=== PATIENT | female | born 1965 | race Two or more races ===

== ENCOUNTER 2017-10-15 07:55 | Inpatient (IN) | payer OTHER ==
[~2017-10-15] VITALS: Ht 167.6 cm; Wt 95.3 kg
[2017-10-15] MEDS ORDERED: SODIUM CHLORIDE 0.9% 1,000 ML IV ONE (08:05)
[2017-10-15] MEDS ORDERED: MORPHINE SULFATE 4 MG/ML SYR/VIAL IV ONE (08:15)
[2017-10-15] MEDS ORDERED: ONDANSETRON HCL 4 MG/2 ML VIAL IV ONE (08:15)
[2017-10-15 08:34] LABS: Basophils # (auto) 0 uL; Basophils % (auto) 0.7 % (0.0-2.0); Eosinophils # (auto) 0.1 uL; Eosinophils % (auto) 1.2 % (0.0-7.0); Hematocrit 42.8 % (36.0-46.0); Hemoglobin 14.3 g/dL (12.2-16.2); Lymphocytes # (auto) 1.8 uL; Lymphocytes % (auto) 29.8 % (10.0-50.0); Mean Corpuscular Hemoglobin 27.5 pg (28.0-32.0); Mean Corpuscular Hgb Conc. 33.4 g/dL (32.0-36.0); Mean Corpuscular Volume 82.3 fL (80.0-100.0); Monocytes # (auto) 0.3 uL; Monocytes % (auto) 5.2 % (0.0-12.0); Neutrophils # (auto) 3.8 uL; Neutrophils % (auto) 63.1 % (37.0-80.0); Nucleated Red Blood Cells % 0.2 %; Platelet Count (auto) 215 10^3/uL (140-450); Red Cell Distribution Width 13.6 % (11.8-14.3); White Blood Cell 5.9 10^3/uL (4.4-10.8)
[2017-10-15 08:52] LABS: Alanine Aminotransferase 46 U/L (13-56); Albumin 3.6 g/dL (3.4-5.0); Alkaline Phosphatase 66 U/L (45-117); Anion Gap 9 (5-15); Aspartate Aminotransferase 30 U/L (15-37); BUN/Creatinine Ratio 14.3; Bilirubin, Total 0.6 mg/dL (0.2-1.0); Blood Urea Nitrogen 13 mg/dL (7-18); Calcium 9.6 mg/dL (8.5-10.1); Carbon Dioxide 25 mmol/L (21-32); Chloride 108 mmol/L (98-107); GFR African American 83 mL/min; GFR Non-African American 69 mL/min; Glucose 94 mg/dL (74-106); INR 0.95 (0.9-1.15); Magnesium 2.7 mg/dL (1.6-2.6); Potassium 4.6 mmol/L (3.5-5.1); Sodium 142 mmol/L (136-145); Total Protein 7.6 g/dL (6.4-8.2)
[2017-10-15] MEDS ORDERED: SODIUM CHLORIDE 0.9% 1,000 ML IV SCH (10:32)
[2017-10-15] MEDS ORDERED: LORazepam 0.5 MG TAB PO PRN (10:45)
[2017-10-15] MEDS ORDERED: LACTULOSE 20Gm/30ML SOLN PO PRN (10:45)
[2017-10-15] MEDS ORDERED: TEMAZEPAM 15 MG CAP PO PRN (10:45)
[2017-10-15] MEDS ORDERED: MORPHINE SULFATE 4 MG/ML SYR/VIAL IV PRN (10:45)
[2017-10-15] MEDS ORDERED: NITROGLYCERIN 0.4 MG SL TAB SL PRN (10:45)
[2017-10-15] MEDS ORDERED: ACETAMINOPHEN 500 MG TAB PO PRN (10:45)
[2017-10-15] MEDS ORDERED: PROMETHAZINE HCL 25 MG/ML 1ML IV PRN (10:45)
[2017-10-15] MEDS ORDERED: METOPROLOL TARTRATE 25 MG TAB PO ONE (11:00)
[2017-10-15] MEDS: HYDROcodone-ACET 5/325MG TAB PO PRN ×2 (11:14→17:56)
[2017-10-15] MEDS ORDERED: HYDR25TA4 PO (11:16)
[2017-10-15] MEDS ORDERED: LISI40TA PO (11:19)
[2017-10-15] MEDS ORDERED: OMEP20CA74 PO (11:19)
[2017-10-15] MEDS ORDERED: TOPI100T68 PO (11:19)
[2017-10-15] MEDS: NITROGLYCERIN 0.2MG/HR TOPICAL PATCH TD ONE ×2 (11:32→11:38)
[2017-10-15] MEDS ORDERED: METOPROLOL SUCCINATE XL 50 MG TAB PO ONE (11:45)
[2017-10-15] MEDS: SODIUM CHLORIDE 0.9% 1,000 ML IV SCH ×2 (15:13→21:27)
[2017-10-15] MEDS ORDERED: METOPROLOL TARTRATE 25 MG TAB PO SCH (22:00)
[2017-10-15] MEDS ORDERED: ATORVASTATIN 20 MG TAB PO SCH (22:00)
[2017-10-16] MEDS: HYDROcodone-ACET 5/325MG TAB PO PRN ×3 (04:23→22:00)
[2017-10-16 05:00] VITALS: BP 124/76
[2017-10-16 07:00] LABS: Cholesterol 206 mg/dL (< 200); HDL Cholesterol 56 mg/dL (40-59); LDL Cholesterol 130 mg/dL (< 100); Triglycerides 151 mg/dL (< 150)
[2017-10-16 09:00] VITALS: BP 127/75
[2017-10-16] MEDS ORDERED: NITROGLYCERIN 0.2MG/HR TOPICAL PATCH TD SCH (10:00)
[2017-10-16] MEDS: ASPirin 81 mg TAB PO SCH (10:30)
[2017-10-16] MEDS: METOPROLOL SUCCINATE XL 50 MG TAB PO SCH (10:31)
[2017-10-16] MEDS: MORPHINE SULFATE 4 MG/ML SYR/VIAL IV PRN (10:32)
[2017-10-16] MEDS: ATORVASTATIN 20 MG TAB PO ONE ×2 (11:15→14:11)
[2017-10-16 13:00] VITALS: BP 144/76
[2017-10-16 17:00] VITALS: BP 111/70
[2017-10-16] MEDS: SODIUM CHLORIDE 0.9% 1,000 ML IV SCH (17:40)
[2017-10-16 19:47] VITALS: BP 124/64
[2017-10-16 22:00] VITALS: BP 123/69
[2017-10-16] MEDS ORDERED: ATORVASTATIN 20 MG TAB PO SCH (22:00)
[2017-10-17 05:00] VITALS: BP 104/65
[2017-10-17] MEDS: HYDROcodone-ACET 5/325MG TAB PO PRN (06:02)
[2017-10-17] MEDS: SODIUM CHLORIDE 0.9% 1,000 ML IV SCH (06:56)
[2017-10-17 09:00] VITALS: BP 129/73
[2017-10-17] MEDS: ASPirin 81 mg TAB PO SCH (10:02)
[2017-10-17] MEDS: MORPHINE SULFATE 4 MG/ML SYR/VIAL IV PRN (10:03)
[2017-10-17] MEDS: METOPROLOL SUCCINATE XL 50 MG TAB PO SCH (10:03)
[2017-10-17 11:30] VITALS: BP 126/76
[2017-10-17 13:00] VITALS: BP 118/83
== END 2017-10-17 12:17 | disposition home or self-care (01) | DRG 313 ==
LOC: ER 07:55 → TELE 07:56 → TELE-CENTR 20:30
PROVIDERS: ADMIT Internal Medicine; ATTEND Family Medicine
DX: R07.89 Other chest pain (principal); E66.9 Obesity, unspecified; E78.00 Pure hypercholesterolemia, unspecified; G43.909 Migraine, unspecified, not intractable, without status migrainosus; I10 Essential (primary) hypertension; K21.9 Gastro-esophageal reflux disease without esophagitis; Z80.6 Family history of leukemia; Z68.33 Body mass index [BMI] 33.0-33.9, adult; Z88.0 Allergy status to penicillin
CPT/HCPCS: 36415; 71045; 80053; 80061; 82550; 83735; 84484; 85025; 85379; 85610; 85652; 85730; 86141; 87081; 93005; 93306; 94761; 96361; 96374; 96375; J2405